=== PATIENT | male | born 1980 | race Caucasian/White ===

== ENCOUNTER → 2016-05-31 | Outpatient (REF) | payer OTHER | LOC: M LAB REF 16:39 | PROVIDERS: ATTEND Internal Medicine | DX: D37.01 Neoplasm of uncertain behavior of lip (principal) ==

== ENCOUNTER → 2016-10-23 | Outpatient (REF) | payer OTHER | LOC: M LAB REF 17:35 | PROVIDERS: ATTEND Nurse Practitioner Family | DX: M10.072 Idiopathic gout, left ankle and foot (principal) ==

== ENCOUNTER → 2017-12-04 | Outpatient (REF) | payer OTHER | LOC: M LAB REF 17:22 | DX: R19.7 Diarrhea, unspecified (principal) ==

== ENCOUNTER → 2018-06-30 | Outpatient (REF) | payer OTHER | LOC: M LAB REF 17:39 | PROVIDERS: ATTEND Internal Medicine | DX: M79.672 Pain in left foot (principal) ==

== ENCOUNTER 2018-09-02 01:51 | Emergency (ER) | payer OTHER ==
[~2018-09-02] VITALS: Ht 177.8 cm; Wt 109.1 kg
[2018-09-02] MEDS ORDERED: CITA20TA6 (01:58)
[2018-09-02 02:26] LABS: BASO # 0.1 10^3/uL (0.0-0.2); BASO % 0.8 % (0.0-1.0); EOS # 0.5 10^3/uL (0.0-0.50); EOS % 7.6 % (0.0-3.0); HEMATOCRIT 43.1 % (42.0-52.0); HEMOGLOBIN 14.7 g/dl (13.5-17.5); LYMPH # 1.2 10^3/uL (1.5-4.5); LYMPH % 19.9 % (24.0-44.0); MEAN CORPUSCULAR HEMOGLOBIN 29.1 pg (27.0-33.0); MEAN CORPUSCULAR HGB CONC 34.1 g/dl (32.0-36.5); MEAN CORPUSCULAR VOLUME 85.2 fl (80.0-96.0); MONO # 0.8 10^3/uL (0.0-0.8); MONO % 12.6 % (0.0-5.0); NEUTROPHILS # 3.5 10^3/uL (1.8-7.7); NEUTROPHILS % 58.8 % (36.0-66.0); PLATELET COUNT, AUTOMATED 169 10^3/uL (150-450); RED BLOOD COUNT 5.06 10^6/uL (4.30-6.10)
[2018-09-02 02:48] LABS: ALBUMIN 3.7 GM/DL (3.2-5.2); ALT/SGPT 32 U/L (12-78); BILIRUBIN,DIRECT 0.1 MG/DL (0.0-0.2); BILIRUBIN,TOTAL 0.5 MG/DL (0.2-1.0); BLOOD UREA NITROGEN 20 MG/DL (7-18); CALCIUM LEVEL 8.9 MG/DL (8.5-10.1); CARBON DIOXIDE LEVEL 27 MEQ/L (21-32); CHLORIDE LEVEL 109 MEQ/L (98-107); GLOMERULAR FILTRATION RATE > 60.0 (>60); GLUCOSE, FASTING 100 MG/DL (70-100); LIPASE 218 U/L (73-393); SODIUM LEVEL 143 MEQ/L (136-145); TOTAL PROTEIN 7.3 GM/DL (6.4-8.2)
[2018-09-02] MEDS ORDERED: NS 1,000 ML IV SCH (05:04)
[2018-09-02] MEDS ORDERED: ISOVUE-370 76% 100ML VIAL (Q9967) As Ordered ONE (05:25)
[2018-09-02 06:07] LABS: CK-MB VALUE MASS 2.9 NG/ML (<3.6); CPK CREATINE PHOSPHOKINASE 361 U/L (39-308); TROPONIN I < 0.02 NG/ML (< 0.10)
--- NOTE | 2018-09-02 06:47 | REPVR ---
EXAM: CT Angiography Chest With Contrast EXAM DATE/TIME: 09/02/2018 5:02 AM CLINICAL HISTORY: 37 years old, male; Left-sided chest pain; Patient HX: Left pain; Additional info: Pleuritic post left pain R/O pe TECHNIQUE: Imaging protocol: Axial computed tomographic angiography images of the chest with intravenous contrast using CT angiography protocol. Coronal and sagittal reformatted images were created and reviewed. 3D rendering: MIP reconstructed images were created and reviewed. Radiation optimization: All CT scans at this facility use at least one of these dose optimization techniques: automated exposure control; mA and/or kV adjustment per patient size (includes targeted exams where dose is matched to clinical indication); or iterative reconstruction. Contrast material: ISO; Contrast volume: 100 ml; Contrast route: AC; COMPARISON: No relevant prior studies available. FINDINGS: Pulmonary arteries: Normal. No pulmonary emboli. Aorta: Unremarkable. No aortic aneurysm. No aortic dissection. Lungs: There is bilateral posterior dependent lung atelectases. Discoid atelectasis seen in the right middle lobe. Pleural space: Unremarkable. No pneumothorax. No pleural effusion. Heart: Unremarkable. No cardiomegaly. No pericardial effusion. Mediastinum: There is a small sliding hiatal hernia. There is suggestion of esophageal wall thickening with some paraesophageal haziness Lymph nodes: Unremarkable. No enlarged lymph nodes. Bones/joints: Unremarkable. No acute fracture. Soft tissues: Unremarkable. IMPRESSION: 1. No CT evidence of pulmonary embolism or right heart strain. 2. No CT evidence of thoracic aortic aneurysm or dissection. 3. Small sliding hiatal hernia with suggestion of esophageal wall thickening with some periesophageal haziness. Correlate clinically for esophagitis among other etiologies. If indicated upper endoscopy may be obtained for further evaluation. 4. Bilateral basilar atelectatic changes in addition to right middle lobe discoid atelectasis. Electronically signed by: Taj June On 09/02/2018 06:46:40 AM
--- NOTE | 2018-09-02 06:50 | REPVR ---
EXAM: CT Abdomen and Pelvis With Contrast EXAM DATE/TIME: 09/02/2018 5:02 AM CLINICAL HISTORY: 37 years old, male; Abdominal pain; Localized; Left; Additional info: L flank pain TECHNIQUE: Imaging protocol: Axial computed tomography images of the abdomen and pelvis with intravenous contrast. Coronal and sagittal reformatted images were created and reviewed. Radiation optimization: All CT scans at this facility use at least one of these dose optimization techniques: automated exposure control; mA and/or kV adjustment per patient size (includes targeted exams where dose is matched to clinical indication); or iterative reconstruction. Contrast material: ISO; Contrast volume: 100 ml; Contrast route: AC; COMPARISON: No relevant prior studies available. FINDINGS: Mediastinum: There is a small sliding hiatal hernia. ABDOMEN: Liver: The liver is hypoattenuated. Gallbladder and bile ducts: The gallbladder is contracted limiting its evaluation. Pancreas: Normal. No ductal dilation. Spleen: Normal. No splenomegaly. Adrenals: Normal. No mass. Kidneys and ureters: Normal. No hydronephrosis. Stomach and bowel: Normal. No obstruction. No mucosal thickening. Appendix: No evidence of appendicitis. PELVIS: Bladder: Unremarkable as visualized. Reproductive: Unremarkable as visualized. ABDOMEN and PELVIS: Intraperitoneal space: Normal. No free air. No significant fluid collection. Bones/joints: No acute fracture. No dislocation. Soft tissues: Unremarkable. Vasculature: Normal. No abdominal aortic aneurysm. Lymph nodes: There is apparent proximal small bowel - jejunal wall thickening with shotty mesenteric lymph nodes. IMPRESSION: 1. Apparent proximal small bowel - jejunal wall thickening with shotty mesenteric lymph nodes. Correlate clinically for enteritis/jejunitis. 2. Fatty infiltration of the liver. 3. Small sliding hiatal hernia. Electronically signed by: Taj June On 09/02/2018 06:50:06 AM
[2018-09-02] MEDS ORDERED: KETOROLAC 30 MG/ML VIAL (J1885) IV ONE (07:00)
[2018-09-02] MEDS ORDERED: PANTOPRAZOLE 40MG TAB (PROTONIX) PO ONE (07:00)
[2018-09-02] MEDS ORDERED: PROT1TAB2 PO (07:01)
[2018-09-02 07:28] VITALS: BP 133/69
[2018-09-02 07:31] LABS: CK-MB VALUE MASS 2.1 NG/ML (<3.6); CPK CREATINE PHOSPHOKINASE 289 U/L (39-308); MB/CK RELATIVE INDEX 0.73 (< OR =4); TROPONIN I < 0.02 NG/ML (< 0.10)
--- NOTE | 2018-09-02 19:29 | ECGEPIP ---
[facility] - ED Test Date: 2018-09-02 Pat Name: DEON VANG Department: Room: - Gender: Male Manager Application: [facility] : 1980 Requested By: TENISHA Baez Order Number: [id number] Reading MD: Destiny Santamaria Measurements Intervals [place] Rate: 82 P: 31 UT: 110 QRS: 38 QRSD: 90 T: 44 QT: 348 QTc: 408 Interpretive Statements SINUS RHYTHM WITH SHORT UT INTERVAL NO PRIOR FOR COMPARISON Electronically Signed on 09-02-2018 19:28:40 EDT by Destiny Santamaria
== END 2018-09-02 07:32 | disposition home or self-care (01) ==
LOC: M ED 01:51
DX: R10.12 Left upper quadrant pain (principal); R11.0 Nausea; F41.9 Anxiety disorder, unspecified; Z87.891 Personal history of nicotine dependence
CPT/HCPCS: 71275; 74177; 80048; 80076; 81001; 82550; 82553; 83690; 84484; 85025; 93005; 93041; 96361; 96374; 99284; J1885; Q9967

== ENCOUNTER → 2018-09-04 | Outpatient (REF) | payer OTHER ==
[~2018-09-04] MED LIST: CITA20TA6; PROT1TAB2 PO
== END ==
LOC: M LAB REF 12:35
PROVIDERS: ATTEND Internal Medicine
DX: M10.9 Gout, unspecified (principal)

== ENCOUNTER → 2018-09-30 | Outpatient (REF) | payer OTHER ==
[2018-10-03 00:06] LABS: Lyme Disease IgG Ab 18 kDa Ban Present (.); Lyme Disease IgG Ab 23 kDa Ban Present (.); Lyme Disease IgG Ab 28 kDa Ban Absent (.); Lyme Disease IgG Ab 30 kDa Ban Absent (.); Lyme Disease IgG Ab 39 kDa Ban Present (.); Lyme Disease IgG Ab 41 kDa Ban Present (.); Lyme Disease IgG Ab 45 kDa Ban Absent (.); Lyme Disease IgG Ab 58 kDa Ban Absent (.); Lyme Disease IgG Ab 66 kDa Ban Absent (.); Lyme Disease IgG Ab 93 kDa Ban Absent (.); Lyme Disease IgG West Blot Int Negative (.); Lyme Disease IgG/IgM Antibodie 2.56 ISR (0.00-0.90); Lyme Disease IgM Ab 23 kDa Ban Present (.); Lyme Disease IgM Ab 39 kDa Ban Present (.); Lyme Disease IgM Ab 41 kDa Ban Present (.); Lyme Disease IgM Ab Quantitati 8.98 index (0.00-0.79); Lyme Disease IgM West Blot Int Positive (.)
== END ==
LOC: M LAB REF 17:00
PROVIDERS: ATTEND Physician Assistant
DX: L51.9 Erythema multiforme, unspecified (principal)

== ENCOUNTER → 2018-09-30 | Outpatient (REF) | payer OTHER ==
[2018-09-30 13:13] LABS: APPEARANCE, URINE CLEAR (CLEAR); BACTERIA, URINE AUTO NEGATIVE (NEGATIVE); BILIRUBIN, URINE AUTO NEGATIVE (NEGATIVE); BLOOD, URINE BLOOD NEGATIVE (NEGATIVE); CALCIUM OXALATE CRYSTALS SMALL; COLOR, URINE AMBER (YELLOW); GLUCOSE, URINE (UA) AUTO NEGATIVE (NEGATIVE); KETONE, URINE AUTO TRACE mg/dL (NEGATIVE); LEUKOCYTE ESTERASE, URINE AUTO NEGATIVE (NEGATIVE); MUCUS, URINE SMALL (NEGATIVE); NITRITE, URINE AUTO NEGATIVE (NEGATIVE); PROTEIN, URINE AUTO 1+ mg/dL (NEGATIVE); RBC, URINE AUTO 1 /HPF (0-3); SPECIFIC GRAVITY URINE AUTO 1.031 (1.002-1.035); SQUAMOUS EPITHELIAL CELL UR AU 0 /HPF (0-6); URIC ACID CRYSTALS SMALL; UROBILINOGEN, URINE AUTO 0.2 mg/dL (0.0-2.0); WBC, URINE AUTO 0 /HPF (0-3)
== END ==
LOC: M LAB REF 12:40
PROVIDERS: ATTEND Physician Assistant
DX: N39.0 Urinary tract infection, site not specified (principal)

== ENCOUNTER → 2018-11-27 | Outpatient (REF) | payer OTHER ==
[2018-11-27 17:38] LABS: C REACTIVE PROTEIN QUANTITATIV 0.83 MG/DL (0.00-0.30)
== END ==
LOC: M LAB REF 16:44
PROVIDERS: ATTEND Internal Medicine
DX: R10.12 Left upper quadrant pain (principal)

== ENCOUNTER → 2018-11-30 | Outpatient (REF) | payer OTHER | LOC: M LAB REF 12:34 | PROVIDERS: ATTEND Internal Medicine | DX: R10.12 Left upper quadrant pain (principal) ==

== ENCOUNTER → 2019-05-18 | Outpatient (REF) | payer OTHER ==
[~2019-05-18] MED LIST changes: -CITA20TA6; +CITA20TA6 PO; +OMEP-221 PO; +PROAAER10 INH; +ZITHTAB2 PO
== END ==
LOC: M LAB REF 12:35
PROVIDERS: ATTEND Registered Nurse
DX: F12.980 Cannabis use, unspecified with anxiety disorder (principal)

== ENCOUNTER 2019-05-21 18:22 | Emergency (ER) | payer BC ==
[~2019-05-21] VITALS: Ht 177.8 cm; Wt 109.1 kg
[~2019-05-21 18:22] MED LIST changes: -OMEP-221 PO; -PROAAER10 INH; -ZITHTAB2 PO
[2019-05-21] MEDS ORDERED: PROAAER10 INH (18:35)
[2019-05-21] MEDS ORDERED: ZITHTAB2 PO (18:35)
[2019-05-21] MEDS ORDERED: OMEP-221 PO (18:35)
--- NOTE | 2019-05-21 19:53 | REP ---
Chest x-ray: Two views. History: Chest pressure . Comparison study: No comparison . Findings: The lungs are well inflated and free of infiltrate. The pleural angles are sharp. The heart size is normal. Pulmonary vasculature is not increased. No significant bony abnormality is seen. Impression: Negative chest x-ray. Electronically Signed by Mir Valle MD 05/21/2019 07:45 P
[2019-05-21 20:10] VITALS: BP 135/84
[2019-05-21] MEDS ORDERED: ACETAMINOPHEN 325 MG TAB PO ONE (20:30)
--- NOTE | 2019-05-22 18:42 | ECGEPIP ---
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
== END 2019-05-21 20:40 | disposition home or self-care (01) ==
LOC: M ED 18:22
DX: H66.93 Otitis media, unspecified, bilateral (principal); H61.23 Impacted cerumen, bilateral; Z20.9 Contact with and (suspected) exposure to unspecified communicable disease; Z79.899 Other long term (current) drug therapy

== ENCOUNTER → 2019-05-21 | Outpatient (REF) | payer BC ==
[2019-05-21 19:24] LABS: INFLUENZA A AMPLIFICATION NEGATIVE (NEGATIVE); INFLUENZA B AMPLIFICATION NEGATIVE (NEGATIVE)
== END ==
LOC: M LAB REF 16:56
PROVIDERS: ATTEND Registered Nurse
DX: J06.9 Acute upper respiratory infection, unspecified (principal)

== ENCOUNTER → 2019-08-03 | Outpatient (CLI) | payer BC ==
[~2019-08-03] MED LIST changes: +OMEP-221 PO; +PROAAER10 INH; +ZITHTAB2 PO
== END ==
LOC: M LABSMTC 12:53
PROVIDERS: ATTEND Family Medicine
DX: Z03.818 Encounter for observation for suspected exposure to other biological agents ruled out (principal); Z11.59 Encounter for screening for other viral diseases

== ENCOUNTER → 2019-08-24 | Outpatient (CLI) | payer BC ==
[2019-08-24 16:18] LABS: C REACTIVE PROTEIN QUANTITATIV 0.78 MG/DL (0.00-0.30); CPK CREATINE PHOSPHOKINASE 169 U/L (39-308); RHEUMATOID FACTOR QUANT < 10.0 IU/ML (<15.0); URIC ACID 8.3 MG/DL (3.5-7.2)
[2019-08-24 16:37] LABS: TOTAL 25(OH) VITAMIN D 13.3 NG/ML (30.0-100.0)
[2019-08-27 19:08] LABS: ANTINUCLEAR ANTIBODIES DIRECT Negative (Negative); CYCLIC CITRULLINATED PEPTIDE 13 units (0-19); Lyme Disease IgG Ab 18 kDa Ban Present (.); Lyme Disease IgG Ab 23 kDa Ban Present (.); Lyme Disease IgG Ab 28 kDa Ban Absent (.); Lyme Disease IgG Ab 30 kDa Ban Absent (.); Lyme Disease IgG Ab 39 kDa Ban Absent (.); Lyme Disease IgG Ab 41 kDa Ban Present (.); Lyme Disease IgG Ab 45 kDa Ban Absent (.); Lyme Disease IgG Ab 58 kDa Ban Absent (.); Lyme Disease IgG Ab 66 kDa Ban Absent (.); Lyme Disease IgG Ab 93 kDa Ban Absent (.); Lyme Disease IgG West Blot Int Negative (.); Lyme Disease IgG/IgM Antibodie 1.48 ISR (0.00-0.90); Lyme Disease IgM Ab 23 kDa Ban Present (.); Lyme Disease IgM Ab 39 kDa Ban Present (.); Lyme Disease IgM Ab 41 kDa Ban Absent (.); Lyme Disease IgM Ab Quantitati 2.16 index (0.00-0.79); Lyme Disease IgM West Blot Int Positive (.)
== END ==
LOC: M PLALAB 14:28
PROVIDERS: ATTEND Physician Assistant
DX: M25.50 Pain in unspecified joint (principal)

== ENCOUNTER 2019-10-05 04:36 | Emergency (ER) | payer BC ==
[~2019-10-05] VITALS: Ht 177.8 cm; Wt 108.9 kg
[2019-10-05 05:09] LABS: BASO # 0.1 10^3/uL (0.0-0.2); BASO % 1.4 % (0.0-1.0); EOS # 0.8 10^3/uL (0.0-0.5); EOS % 11.4 % (0.0-3.0); HEMATOCRIT 44.8 % (42.0-52.0); HEMOGLOBIN 15.5 g/dl (13.5-17.5); LYMPH # 1.9 10^3/uL (1.5-5.0); LYMPH % 27.3 % (24.0-44.0); MEAN CORPUSCULAR HEMOGLOBIN 29.2 pg (27.0-33.0); MEAN CORPUSCULAR HGB CONC 34.6 g/dl (32.0-36.5); MEAN CORPUSCULAR VOLUME 84.5 fl (80.0-96.0); MONO # 0.6 10^3/uL (0.0-0.8); MONO % 8.5 % (0.0-5.0); NEUTROPHILS # 3.6 10^3/uL (1.5-8.5); NEUTROPHILS % 51.1 % (36.0-66.0); PLATELET COUNT, AUTOMATED 188 10^3/uL (150-450)
[2019-10-05 05:21] LABS: INR 1.03; PROTHROMBIN TIME 13.2 SECONDS (11.8-14.0)
[2019-10-05 05:41] LABS: ERYTHROCYTE SEDIMENTATION RATE 3 mm/hr (0-15)
[2019-10-05 05:47] LABS: ALT/SGPT 32 U/L (12-78); BILIRUBIN,DIRECT 0.1 MG/DL (0.0-0.2); BILIRUBIN,TOTAL 0.4 MG/DL (0.2-1.0); C REACTIVE PROTEIN QUANTITATIV < 0.30 MG/DL (0.00-0.30); LIPASE 131 U/L (73-393); NT-PRO BNP 42 PG/ML (<125); TOTAL PROTEIN 7.4 GM/DL (6.4-8.2)
[2019-10-05 06:09] LABS: D-DIMER QUANT < 270 ng/ml (<500)
[2019-10-05] MEDS ORDERED: KETOROLAC 30 MG/ML 1ML VIAL IV ONE (06:30)
[2019-10-05] MEDS ORDERED: KETO10TAB PO (07:43)
[2019-10-05 07:45] VITALS: BP 128/80
--- NOTE | 2019-10-05 07:50 | REP ---
Clinical: Acute chest pain . Comparison: 05/21/2019 . Findings: The mediastinum and cardiac silhouette are stable and within normal limits for portable technique. The lung rodgers are clear without acute consolidation, effusion, or pneumothorax. Skeletal structures are intact. Impression: No acute cardiopulmonary process appreciated. Electronically Signed by Ronaldo Lal MD 10/05/2019 07:42 A
--- NOTE | 2019-10-05 17:51 | ECGEPIP ---
[facility] - ED Test Date: 2019-10-05 Pat Name: DEON VANG Department: Room: - Gender: Male Credentialer: lr : 1980 Requested By: SUSHMA Madrid Order Number: [id number] Reading MD: Destiny Santamaria Measurements Intervals [place] Rate: 70 P: 37 TX: 131 QRS: 34 QRSD: 100 T: 32 QT: 377 QTc: 408 Interpretive Statements SINUS RHYTHM DECREASED RATE 05/21/19 Electronically Signed on 10-05-2019 17:50:39 EDT by Destiny Santamaria
== END 2019-10-05 08:05 | disposition home or self-care (01) ==
LOC: M ED 04:36
DX: R07.9 Chest pain, unspecified (principal); A69.20 Lyme disease, unspecified; F41.9 Anxiety disorder, unspecified; Z87.891 Personal history of nicotine dependence
CPT/HCPCS: 36415; 71045; 80047; 80076; 83690; 83880; 84484; 85025; 85379; 85610; 85652; 86140; 93005; 93041; 94760; 96374; 99285; J1885

== ENCOUNTER 2019-10-28 18:10 | Observation (INO) | payer BC ==
[~2019-10-28 18:10] MED LIST changes: +ISOVUE-370 76% 100ML VIAL As Ordered ONE; +KETO10TAB PO
[2019-10-28] MEDS ORDERED: LORazepam 2 MG/ML VIAL ONE (19:13)
[2019-10-28] MEDS ORDERED: LORazepam 2 MG/ML VIAL As Ordered ONE (19:13)
[2019-10-28] MEDS ORDERED: CIPROFLOXACIN/D5W 400 MG/200 ML BAG (J0744) ONE (19:14)
[2019-10-28] MEDS ORDERED: CIPROFLOXACIN/D5W 400 MG/200 ML BAG (J0744) As Ordered ONE (21:25)
[2019-10-29] MEDS ORDERED: KETOROLAC 30 MG/ML 1ML VIAL As Ordered ONE (00:34)
[2019-10-29] MEDS ORDERED: metroNIDAZOLE/NACL 500MG(5MG/ML) 100ML BAG (S0030) ONE ×2 (00:34→08:20)
[2019-10-29] MEDS ORDERED: KETOROLAC 30 MG/ML 1ML VIAL ONE (00:34)
[2019-10-29] MEDS ORDERED: metroNIDAZOLE/NACL 500MG(5MG/ML) 100ML BAG (S0030) As Ordered ONE ×2 (00:34→08:20)
[2019-10-29] MEDS ORDERED: MOM 30ML SUSPENSION UDC As Ordered ONE (10:15)
[2019-10-29] MEDS ORDERED: MOM 30ML SUSPENSION UDC ONE (10:15)
--- NOTE | 2019-11-26 13:31 | ECGEPIP ---
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
--- NOTE | 2019-11-26 14:52 | HPE ---
DATE OF ADMISSION: 10/28/2019 A 38-year-old male presents to the emergency department with right lower flank pain for the last 2 weeks. The pain is 7/10 in intensity, dull, aching, intermittent, radiating to the groin. Movement makes it worse. Standing up and lying down makes it better. He also has constipation for the last 3 days. He is bloated and passing a lot of gas. He has no history of nausea, vomiting, fever, weight loss. No history of urinary disturbances. No history of blood in stools, blood in urine. No history of trauma. PAST MEDICAL HISTORY: Significant for Lyme disease diagnosed twice in 2018 and in August 2019. Both the times he was treated with 3 weeks of doxycycline. He also has had kidney infection last year, treated with antibiotics. FAMILY HISTORY: Significant for diabetes on the paternal side, brain cancer in his aunt on the maternal side, and lung and throat cancer in an uncle on the maternal side. SOCIAL HISTORY: He had been a heavy drinker in his 20s, now an occasional drinker. He has been a smoker, smoking two packs a day but quit since the last 6 years. Recreational drugs: He uses occasional marijuana. 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 SEXUAL HISTORY: Sexually active with one female partner. Vital signs were normal. PHYSICAL EXAMINATION: GENERAL: The patient looks anxious, stressed, but no apparent discomfort as of now. He is alert and oriented to time, place, and person. He has a heavy build with good nutritional status. Hydration seems fine. HEENT: Shows no discharge. Normal extraocular movements. No scleral icterus. No pallor. Oral hydration status is good. Normal dental hygiene. No lesions in his mouth. NECK: Nondistended. No visible swellings, pulsations. No thyromegaly. No carotid bruit. LUNGS: Normal breath sounds bilaterally. No wheezing, crackles. CARDIOVASCULAR: Normal S1, S2. No murmur heard. ABDOMEN: Looks normal in color. Nondistended. No swelling. No rashes seen. No scars. Normal placement of that belly button. On palpation, feels soft to touch. Tender in the right lower flank, right lower abdominal quadrant. On auscultation, normal tympanitic sounds heard. Bowel sounds normal. Percussion: Tympanitic note. EXTREMITIES: Upper extremity pulses regular. Good volume pulse. No clubbing, no cyanosis. No asterixis. Lower extremities: No swelling, no ulcers, no edema, no rash. Peripheral pulses good. NEUROLOGIC: Normal strength in all four extremities. Sensations intact. LABORATORY DATA: CBC: His hemoglobin is normal. Electrolytes are normal. Liver function tests (LFTs) are normal. Glucose is normal. No urinary ketones. His CT with contrast shows pneumatosis in the wall of the right colon, particularly posteriorly with a few areas suggestive of minimal adjacent extraluminal air. Not definitive for ischemic bowel. Persistent minimal dilation of the appendix at 7 mm. No longer clearly containing air and not as well visualized. The distal portion of the appendix is again only faintly seen, and the appendix is incompletely evaluated. Probable small hiatal hernia with mild findings, raising the possibility of distal esophagitis. Minimal sludge in the gallbladder. PLAN: Admit him for observation in the medical/surgical [place]. Start intravenous (IV) fluids, normal saline 100 mL per hour. Start prophylactic antibiotics, ciprofloxacin 400 mg every 12 and metronidazole 500 mg every 8. Repeat labs picking machine operator. Activity as tolerated. Clear liquid diet. No per oral post midnight and reassess in the morning. Probable pneumatosis intestinalis, watching for ischemia bowel. MTDD
--- NOTE | 2019-11-26 15:26 | HPE ---
ADDENDUM -- Please see report #[id number]. DATE OF ADMISSION: 10/28/2019 The details of the history and physical examination will be dictated by my resident, Dr. Fowler. IN SUMMARY: This is a relatively healthy 38-year-old obese male with a two week history of right lower back pain for two weeks duration, slightly worse last night. Otherwise, denies any complaint of changes in bowel habits, fevers, chills or any severe abdominal pain. At that time was able to carry on with his regular activity, as well as able to eat. On evaluation, he has normal laboratory, but on CT was suspected to have possible pneumatosis in the posterior wall of the cecum, suspicious for possible ischemic bowel. PHYSICAL EXAMINATION: On examination, he does not have any peritonitis. Abdomen looks benign. He does have some mild lower back tenderness, which seems to be musculoskeletal. He is moving around quite comfortably. IMPRESSION: Right lower back pain, some mild abdominal pain with question of possible pneumatosis. I will hold him in the hospital and give him Cipro and Flagyl. I am not totally convinced of the possibility of ischemic bowel. His story just does not make sense for ischemic bowel. He does not have any risk factors for it. There is no association inflammation or anything that I could see. There is no contrast within the bowel, which may give me maybe more definition to the area. As I said, I will keep him in the hospital, do serial examination, I will talk with our radiologist during the day and possibly do other confirming studies, such as Barium enema or repeat CT with an oral contrast. I have discussed with him this plan and he is in agreement with it. ALICIA
[2019-12-01 11:44] LABS: APPEARANCE, URINE CLEAR (CLEAR); BACTERIA, URINE AUTO NEGATIVE (NEGATIVE); BILIRUBIN, URINE AUTO NEGATIVE (NEGATIVE); BLOOD, URINE BLOOD NEGATIVE (NEGATIVE); COLOR, URINE YELLOW (YELLOW); GLUCOSE, URINE (UA) AUTO NEGATIVE (NEGATIVE); KETONE, URINE AUTO NEGATIVE (NEGATIVE); LEUKOCYTE ESTERASE, URINE AUTO NEGATIVE (NEGATIVE); NITRITE, URINE AUTO NEGATIVE (NEGATIVE); PROTEIN, URINE AUTO NEGATIVE (NEGATIVE); RBC, URINE AUTO 1 /HPF (0-3); SPECIFIC GRAVITY URINE AUTO 1.005 (1.002-1.035); SQUAMOUS EPITHELIAL CELL UR AU 0 /HPF (0-6); UROBILINOGEN, URINE AUTO 0.2 mg/dL (0.0-2.0); WBC, URINE AUTO 0 /HPF (0-3)
[2019-12-02 08:55] LABS: BASO # 0.1 10^3/uL (0.0-0.2); BASO % 1.1 % (0.0-1.0); EOS # 0.4 10^3/uL (0.0-0.5); EOS % 4.8 % (0.0-3.0); HEMATOCRIT 44.9 % (42.0-52.0); HEMOGLOBIN 15.3 g/dl (13.5-17.5); LYMPH # 1.7 10^3/uL (1.5-5.0); LYMPH % 21.6 % (24.0-44.0); MEAN CORPUSCULAR HEMOGLOBIN 28.9 pg (27.0-33.0); MEAN CORPUSCULAR HGB CONC 34.1 g/dl (32.0-36.5); MEAN CORPUSCULAR VOLUME 84.9 fl (80.0-96.0); MONO # 0.5 10^3/uL (0.0-0.8); MONO % 6.5 % (0.0-5.0); NEUTROPHILS # 5.2 10^3/uL (1.5-8.5); NEUTROPHILS % 65.7 % (36.0-66.0); PLATELET COUNT, AUTOMATED 229 10^3/uL (150-450); RED BLOOD COUNT 5.29 10^6/uL (4.30-6.10)
[2019-12-13 11:01] LABS: BLOOD UREA NITROGEN 10 MG/DL (7-18); CARBON DIOXIDE LEVEL 27 MEQ/L (21-32); CHLORIDE LEVEL 107 MEQ/L (98-107); CREATININE FOR GFR 1.31 MG/DL (0.70-1.30); GLOMERULAR FILTRATION RATE > 60.0 (>60); GLUCOSE, FASTING 74 MG/DL (70-100); POTASSIUM SERUM 4.1 MEQ/L (3.5-5.1); SODIUM LEVEL 140 MEQ/L (136-145)
[2019-12-13 11:02] LABS: ALBUMIN 4.6 GM/DL (3.2-5.2); ALT/SGPT 34 U/L (12-78); BILIRUBIN,DIRECT 0.2 MG/DL (0.0-0.2); BILIRUBIN,TOTAL 0.7 MG/DL (0.2-1.0); CALCIUM LEVEL 9.5 MG/DL (8.5-10.1); LIPASE 123 U/L (73-393)
--- NOTE | 2019-12-25 07:10 | IPN ---
DATE: 10/29/2019 SUBJECTIVE: Patient is just about the same, hemodynamically stable, no new abdominal pain or discomfort, some mild right lower back discomfort. He was able to sleep. He denies any nausea. He has not had any bowel movement but is passing flatus. He is hemodynamically stable and afebrile. On examination, he looks very comfortable. Abdominal exam shows benign, nondistended, soft abdomen, nontender over the right lower quadrant area, no rebound or guarding. Minimal tenderness along the right paraspinal lower back area. Labs were reviewed and he does not have any leukocytosis nor any left shift. Electrolytes are normal. Lactic acid was not available at the time that I saw him. IMPRESSION AND PLAN: 1. Right lower back pain. Question of pneumatosis on CT. I reviewed the CT with our radiologist, Dr. Keene. He is not so convinced that there is pneumatosis, and if there is a minimal one, was not so sure if this is significant. He does not have any vascular narrowing on the CT that was done with IV contrast. There is no associated inflammation at the area, the appendix looks normal. There is no bowel obstruction that would have caused the ischemia at that side of the bowel wall, he does have a large amount of stool in the area. So, a few issues that I discussed with him is if there is any other confirmatory test we could do. He does not believe a repeat CT at this time would be of any benefit and the patient has a benign course. Either a followup CT a few weeks after or a colonoscopy may be a better followup. At this point, I do not think the patient truly has pneumatosis nor have anything in the gastrointestinal tract that may require antibiotics, surgery nor close followup. So, I am sending him home. I will give him a dose of Milk of Magnesia, and otherwise he was able to tolerate a regular diet, he can go home and followup with me in 2 weeks time. ALICIA
[2019-12-25 19:34] LABS: HEMATOCRIT 42.7 % (42.0-52.0); HEMOGLOBIN 14.6 g/dl (13.5-17.5); MEAN CORPUSCULAR HEMOGLOBIN 29.1 pg (27.0-33.0); MEAN CORPUSCULAR HGB CONC 34.2 g/dl (32.0-36.5); MEAN CORPUSCULAR VOLUME 85.1 fl (80.0-96.0); PLATELET COUNT, AUTOMATED 196 10^3/uL (150-450); RED BLOOD COUNT 5.02 10^6/uL (4.30-6.10); WHITE BLOOD COUNT 5.7 10^3/uL (4.0-10.0)
== END 2019-10-29 11:30 | disposition home or self-care (01) ==
LOC: M ED 18:10 → M MS5PR 18:11 → UNDOADMIN 20:30 → UNDODISIN 10-29 11:30
PROVIDERS: ADMIT Surgery; ATTEND Surgery
DX: M54.5 Low back pain (principal); K59.00 Constipation, unspecified; Z87.891 Personal history of nicotine dependence; E66.9 Obesity, unspecified
CPT/HCPCS: 74176; 74177; 80048; 80053; 80076; 81001; 83605; 83690; 85025; 85027; 87086; 93005; 96361; 96374; 99283; J0744; J1885; J2060; Q9967; U0002

== ENCOUNTER → 2019-11-11 | Outpatient (REF) | payer BC ==
[~2019-11-11] MED LIST changes: -ISOVUE-370 76% 100ML VIAL As Ordered ONE
== END ==
LOC: M LAB REF 17:39
PROVIDERS: ATTEND Family Medicine
DX: R19.7 Diarrhea, unspecified (principal)

== ENCOUNTER → 2019-11-26 | Outpatient (CLI) | payer BC ==
[~2019-11-26] MED LIST changes: +GASTROGRAFIN SOLUTION 30ML (Q9963) As Ordered ONE; +ISOVUE-370 76% 100ML VIAL As Ordered ONE
--- NOTE | 2019-12-16 13:50 | REP ---
CONTRAST ENHANCED CT ABDOMEN AND PELVIS CLINICAL: Abdominal pain. TECHNIQUE: Axial contrast enhanced images from the thoracic inlet to the upper abdomen with coronal and sagittal reformations using oral (per protocol) and 100 mL Isovue-370 intravenous contrast material. COMPARISON: 10/28/2019, 09/02/2018. FINDINGS: Lung bases are clear. Visualized heart and pericardium normal. Liver, spleen, pancreas, gallbladder, bilateral adrenal glands, and kidneys are normal. The enteric system is without obstruction or acute inflammatory process. Normal terminal ileum, cecum and appendix identified in the right lower quadrant. Few small sigmoid diverticula noted without acute diverticulitis. Pelvis demonstrates normal bladder and age appropriate prostate/seminal vesicles. No ascites. No free air. No adenopathy. Abdominal aorta and vasculature appear normal. Musculoskeletal structures are intact and without acute osseous abnormality. IMPRESSION: * No acute abdominopelvic pathology appreciated. * No ascites, focal inflammatory stranding, or adenopathy. * There is no evidence for pneumatosis on current examination and likely no evidence for pneumatosis on the prior examination. MTDD
== END ==
LOC: M RAD 12:11
PROVIDERS: ATTEND Surgery
DX: R10.84 Generalized abdominal pain (principal); M54.5 Low back pain
CPT/HCPCS: 74177; Q9963; Q9967

== ENCOUNTER → 2020-02-17 | Outpatient (CLI) | payer BC ==
[~2020-02-17] MED LIST changes: -GASTROGRAFIN SOLUTION 30ML (Q9963) As Ordered ONE; -ISOVUE-370 76% 100ML VIAL As Ordered ONE
[2020-02-17 15:06] LABS: BASO # 0.1 10^3/uL (0.0-0.2); BASO % 1.6 % (0.0-1.0); EOS # 0.4 10^3/uL (0.0-0.5); EOS % 8.1 % (0.0-3.0); HEMATOCRIT 47.7 % (42.0-52.0); HEMOGLOBIN 15.9 g/dl (13.5-17.5); LYMPH # 1.1 10^3/uL (1.5-5.0); LYMPH % 23.2 % (24.0-44.0); MEAN CORPUSCULAR HEMOGLOBIN 29.1 pg (27.0-33.0); MEAN CORPUSCULAR HGB CONC 33.3 g/dl (32.0-36.5); MEAN CORPUSCULAR VOLUME 87.2 fl (80.0-96.0); MONO # 0.5 10^3/uL (0.0-0.8); MONO % 10.6 % (0.0-5.0); NEUTROPHILS # 2.8 10^3/uL (1.5-8.5); NEUTROPHILS % 56.3 % (36.0-66.0); PLATELET COUNT, AUTOMATED 223 10^3/uL (150-450); RED BLOOD COUNT 5.47 10^6/uL (4.30-6.10); WHITE BLOOD COUNT 4.9 10^3/uL (4.0-10.0)
[2020-02-17 17:09] LABS: ALBUMIN 4.3 GM/DL (3.2-5.2); ALT/SGPT 33 U/L (12-78); BILIRUBIN,TOTAL 0.5 MG/DL (0.2-1.0); BLOOD UREA NITROGEN 16 MG/DL (7-18); CALCIUM LEVEL 9.1 MG/DL (8.5-10.1); CARBON DIOXIDE LEVEL 29 MEQ/L (21-32); CHLORIDE LEVEL 106 MEQ/L (98-107); CHOLESTEROL LEVEL 266 MG/DL (<200); CHOLESTEROL RISK RATIO 6.487 (<5); CREATININE FOR GFR 1.11 MG/DL (0.70-1.30); FREE T4 1.04 NG/DL (0.76-1.46); GLOMERULAR FILTRATION RATE > 60.0 (>60); GLUCOSE, FASTING 81 MG/DL (70-100); HDL CHOLESTEROL 41 MG/DL (>40); LDL CHOLESTEROL 182 MG/DL (<100); NON-HDL-C 225 MG/DL; POTASSIUM SERUM 4.2 MEQ/L (3.5-5.1); SODIUM LEVEL 138 MEQ/L (136-145); TOTAL PROTEIN 7.3 GM/DL (6.4-8.2); TRIGLYCERIDES LEVEL 216 MG/DL (<150); URIC ACID 6.3 MG/DL (3.5-7.2)
[2020-02-17 17:15] LABS: TOTAL 25(OH) VITAMIN D 66.3 NG/ML (30.0-100.0)
== END ==
LOC: M PLALAB 10:02
PROVIDERS: ATTEND Family Medicine
DX: E55.9 Vitamin D deficiency, unspecified (principal); Z13.220 Encounter for screening for lipoid disorders; Z13.29 Encounter for screening for other suspected endocrine disorder; Z13.0 Encounter for screening for diseases of the blood and blood-forming organs and certain disorders involving the immune mechanism; M10.9 Gout, unspecified

== ENCOUNTER → 2020-03-08 | Outpatient (REF) | payer BC ==
[2020-03-08 16:34] LABS: BASO # 0.1 10^3/uL (0.0-0.2); BASO % 1.3 % (0.0-1.0); EOS # 0.4 10^3/uL (0.0-0.5); EOS % 4.5 % (0.0-3.0); HEMATOCRIT 48.6 % (42.0-52.0); LYMPH # 1.7 10^3/uL (1.5-5.0); LYMPH % 21.6 % (24.0-44.0); MEAN CORPUSCULAR HEMOGLOBIN 27.9 pg (27.0-33.0); MEAN CORPUSCULAR HGB CONC 32.9 g/dl (32.0-36.5); MEAN CORPUSCULAR VOLUME 84.8 fl (80.0-96.0); MONO # 0.7 10^3/uL (0.0-0.8); MONO % 9.1 % (0.0-5.0); NEUTROPHILS # 4.9 10^3/uL (1.5-8.5); NEUTROPHILS % 63.2 % (36.0-66.0); PLATELET COUNT, AUTOMATED 289 10^3/uL (150-450); RED BLOOD COUNT 5.73 10^6/uL (4.30-6.10); WHITE BLOOD COUNT 7.7 10^3/uL (4.0-10.0)
[2020-03-08 17:18] LABS: C REACTIVE PROTEIN QUANTITATIV < 0.30 MG/DL (0.00-0.30); FERRITIN 90 NG/ML (26-388); IRON (FE) 74 UG/DL (65-175); RHEUMATOID FACTOR QUANT < 10.0 IU/ML (<15.0)
[2020-03-08 18:23] LABS: ERYTHROCYTE SEDIMENTATION RATE 3 mm/hr (0-15)
[2020-03-15 19:11] LABS: CYCLIC CITRULLINATED PEPTIDE 6 units (0-19); HLA-B27 Negative (.)
== END ==
LOC: M SFHCRHEU 15:18
PROVIDERS: ATTEND Internal Medicine
DX: M25.50 Pain in unspecified joint (principal)

== ENCOUNTER → 2020-03-14 | Outpatient (CLI) | payer BC ==
--- NOTE | 2020-03-14 15:10 | REP ---
INDICATION: SACROILIAC PAIN, POLYARTHRALGIA COMPARISON: None. TECHNIQUE: AP, lateral, bilateral oblique, and coned-down views of the lumbar spine. FINDINGS: Alignment and lordosis maintained. Vertebral bodies are intact. No acute fracture/compression injury or subluxation. No obvious spondylolysis or spondylolisthesis.. Endplate sclerosis and subtle marginal spurring at the L1-2 and T12-L1 levels suggests mild degenerative change. IMPRESSION: Mild degenerative changes at T12-L1 and L1-2. <Electronically signed by Ronaldo Lal > 03/14/20 [id number]
--- NOTE | 2020-03-14 15:11 | REP ---
INDICATION: SACROILIAC PAIN, POLYARTHRALGIA. COMPARISON: None. TECHNIQUE: AP, lateral, open mouth views of the cervical spine. FINDINGS: Alignment and lordosis maintained. Vertebral bodies and disc spaces are normal. Prevertebral soft tissues are normal. C1-C2 articulation and odontoid process appear normal. IMPRESSION: Normal age-appropriate cervical spine radiographs <Electronically signed by Ronaldo Lal > 03/14/20 [id number]
--- NOTE | 2020-03-14 15:16 | REP ---
INDICATION: SACROILIAC PAIN, POLYARTHRALGIA. COMPARISON: None. TECHNIQUE: AP and bilateral oblique views of the bilateral sacroiliac joints FINDINGS: Bilateral sacroiliac joints are symmetric and age-appropriate. No significant degenerative changes are appreciated. IMPRESSION: Normal symmetric age-appropriate bilateral sacroiliac joints <Electronically signed by Ronaldo Lal > 03/14/20 [id number]
== END ==
LOC: M WUC 13:56
PROVIDERS: ATTEND Internal Medicine
DX: M53.3 Sacrococcygeal disorders, not elsewhere classified (principal); M25.50 Pain in unspecified joint

== ENCOUNTER → 2020-03-15 | Outpatient (REF) | payer BC | LOC: M LAB REF 17:59 | PROVIDERS: ATTEND Family Medicine | DX: J06.9 Acute upper respiratory infection, unspecified (principal) ==

== ENCOUNTER → 2020-04-12 | Outpatient (REF) | payer BC | LOC: M LAB REF 18:49 | PROVIDERS: ATTEND Physician Assistant | DX: R19.7 Diarrhea, unspecified (principal) ==

== ENCOUNTER → 2020-05-16 | Outpatient (CLI) | payer SELFPAY | LOC: M LABSMTC 09:53 | PROVIDERS: ATTEND Pediatrics | DX: Z11.52 Encounter for screening for COVID-19 (principal) ==

== ENCOUNTER → 2020-08-18 | Outpatient (CLI) | payer BC ==
[2020-08-18 15:44] LABS: BASO # 0.1 10^3/uL (0.0-0.2); BASO % 1.5 % (0.0-1.0); EOS # 0.3 10^3/uL (0.0-0.5); EOS % 4.9 % (0.0-3.0); HEMATOCRIT 48.1 % (42.0-52.0); HEMOGLOBIN 16.3 g/dl (13.5-17.5); LYMPH # 1.1 10^3/uL (1.5-5.0); LYMPH % 19.6 % (24.0-44.0); MEAN CORPUSCULAR HEMOGLOBIN 29.1 pg (27.0-33.0); MEAN CORPUSCULAR HGB CONC 33.9 g/dl (32.0-36.5); MEAN CORPUSCULAR VOLUME 85.9 fl (80.0-96.0); MONO # 0.5 10^3/uL (0.0-0.8); MONO % 8.2 % (2.0-8.0); NEUTROPHILS # 3.6 10^3/uL (1.5-8.5); NEUTROPHILS % 65.6 % (36.0-66.0); PLATELET COUNT, AUTOMATED 175 10^3/uL (150-450); WHITE BLOOD COUNT 5.5 10^3/uL (4.0-10.0)
[2020-08-18 16:09] LABS: ALBUMIN 4.5 GM/DL (3.2-5.2); ALT/SGPT 27 U/L (12-78); BILIRUBIN,TOTAL 0.7 MG/DL (0.2-1.0); BLOOD UREA NITROGEN 8 MG/DL (7-18); CALCIUM LEVEL 9.5 MG/DL (8.5-10.1); CARBON DIOXIDE LEVEL 27 MEQ/L (21-32); CHLORIDE LEVEL 107 MEQ/L (98-107); CK-MB VALUE MASS < 1.0 NG/ML (<3.6); CPK CREATINE PHOSPHOKINASE 176 U/L (39-308); CREATININE FOR GFR 1.14 MG/DL (0.70-1.30); FREE T4 1.19 NG/DL (0.76-1.46); GLOMERULAR FILTRATION RATE > 60.0 (>60); GLUCOSE, FASTING 79 MG/DL (70-100); MAGNESIUM LEVEL 2.2 MG/DL (1.8-2.4); MB/CK RELATIVE INDEX 0.57 (< OR =4); PHOSPHORUS LEVEL 3.3 MG/DL (2.5-4.9); SODIUM LEVEL 141 MEQ/L (136-145); TOTAL PROTEIN 7.6 GM/DL (6.4-8.2); TROPONIN I < 0.02 NG/ML (< 0.10)
== END ==
LOC: M WUC 12:26
PROVIDERS: ATTEND Nurse Practitioner Family
DX: R53.83 Other fatigue (principal)

== ENCOUNTER → 2020-09-27 | Outpatient (CLI) | payer SELFPAY | LOC: M LABSMTC 10:34 | PROVIDERS: ATTEND Pediatrics | DX: Z20.828 Contact with and (suspected) exposure to other viral communicable diseases (principal) ==

== ENCOUNTER → 2020-11-01 | Outpatient (CLI) | payer BC ==
[2020-11-03 12:12] LABS: Lyme Disease IgG Ab 18 kDa Ban Present (.); Lyme Disease IgG Ab 23 kDa Ban Present (.); Lyme Disease IgG Ab 28 kDa Ban Absent (.); Lyme Disease IgG Ab 30 kDa Ban Absent (.); Lyme Disease IgG Ab 39 kDa Ban Absent (.); Lyme Disease IgG Ab 41 kDa Ban Present (.); Lyme Disease IgG Ab 45 kDa Ban Absent (.); Lyme Disease IgG Ab 58 kDa Ban Absent (.); Lyme Disease IgG Ab 66 kDa Ban Absent (.); Lyme Disease IgG Ab 93 kDa Ban Absent (.); Lyme Disease IgG West Blot Int Negative (.); Lyme Disease IgG/IgM Antibodie 0.94 ISR (0.00-0.90); Lyme Disease IgM Ab 23 kDa Ban Present (.); Lyme Disease IgM Ab 39 kDa Ban Present (.); Lyme Disease IgM Ab 41 kDa Ban Absent (.); Lyme Disease IgM Ab Quantitati 1.92 index (0.00-0.79); Lyme Disease IgM West Blot Int Positive (.)
== END ==
LOC: M PLALAB 10:17
PROVIDERS: ATTEND Family Medicine
DX: S40.862A Insect bite (nonvenomous) of left upper arm, initial encounter (principal); W57.XXXA Bitten or stung by nonvenomous insect and other nonvenomous arthropods, initial encounter; Y92.9 Unspecified place or not applicable

== ENCOUNTER → 2020-11-13 | Outpatient (CLI) | payer SELFPAY ==
[~2020-11-13] MED LIST changes: +ALLO300T2 PO; +BUPR150T12 PO; +DOXY100T27 PO; +ERGO500029 PO; +IBUP-1114 PO
== END ==
LOC: M LABSMTC 10:16
PROVIDERS: ATTEND Anesthesiology
DX: Z01.812 Encounter for preprocedural laboratory examination (principal); Z20.822 Contact with and (suspected) exposure to COVID-19

== ENCOUNTER 2020-11-17 11:15 | Day surgery (SDC) | payer BC ==
[~2020-11-17] VITALS: Ht 177.8 cm; Wt 95.2 kg
[~2020-11-17 11:15] MED LIST changes: +LIDOCAINE 2% 100MG/5ML SDV (FOR ANES.) As Ordered ONE; +NS 1,000 ML IV ONE; +propofoL 200 MG/20 ML VIAL As Ordered ONE
--- NOTE | 2020-11-17 13:45 | ROOR ---
Patient Name: Indra Guzman Procedure Date: 11/17/2020 12:48 PM Date of : 1980 Age: 40 Room: [facility] Gender: Male Note Status: Finalized Procedure: Upper GI endoscopy Indications: Epigastric abdominal pain, Heartburn, Diarrhea Providers: Jerald Rodgers MD Referring MD: Mita RICHTER DO Requesting Provider: Medicines: Monitored Anesthesia Care Complications: No immediate complications. Procedure: Pre-Anesthesia Assessment: - The heart rate, respiratory rate, oxygen saturations, blood pressure, adequacy of pulmonary ventilation, and response to care were monitored throughout the procedure. The Endoscope was introduced through the mouth, and advanced to the second part of duodenum. The upper GI endoscopy was accomplished without difficulty. The patient tolerated the procedure well. Findings: Two benign-appearing, intrinsic severe (stenosis; an endoscope cannot pass) stenoses were found in the proximal esophagus. The narrowest stenosis measured less than one cm (in length). The stenoses were traversed after dilation. A TTS dilator was passed through the scope. Dilation with a 12-13.5-15 mm balloon dilator was performed to 12 mm. The dilation site was examined and showed complete resolution of luminal narrowing. There were esophageal mucosal changes consistent with long-segment Dejesus's esophagus present in the lower third of the esophagus. The maximum longitudinal extent of these mucosal changes was 9 cm in length. No nodularities were seen. There is mild esophagitis changes at the Z line at 30 cm from incisors/top of barretts. Mucosa was biopsied with a cold forceps for histology randomly at intervals of 2 cm from 30 to 39 cm from the incisors. A total of 5 specimen bottles were sent to pathology. A medium-sized hiatal hernia was present. The entire examined stomach was normal. Biopsies were taken with a cold forceps for histology. The examined duodenum was normal. Biopsies for histology were taken with a cold forceps for evaluation of celiac disease. Several biopsies were obtained with cold forceps for evaluation of eosinophilic esophagitis in the upper third of the esophagus and in the middle third of the esophagus. Impression: - Small caliber, ringed appearance in proximal esophagus.Biopsies were obtained in the upper third of the esophagus and in the middle third of the esophagus. r/o Eosinophilic esophagitis. - Benign-appearing proximal esophageal stenoses. Dilated to 12 mm with TTS balloon system. 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 Biopsied. - Medium-sized hiatal hernia. - Otherwise normal stomach. Biopsied. - Normal examined duodenum. Biopsied. Recommendation: - Use Prilosec (omeprazole) 40 mg PO BID indefinitely. - Telephone endoscopist for pathology results in 2 weeks. - (the script was sent to your pharmacy on file) - Repeat upper endoscopy usually in 3 years for surveillance of benign Dejesus's esophagus. (However await biopsies for definite interval timing of EGD)--call my office in 2 weeks. Procedure Code(s): --- Professional --- 49345, Esophagogastroduodenoscopy, flexible, transoral; with transendoscopic balloon dilation of esophagus (less than 30 mm diameter) 39800, 59, Esophagogastroduodenoscopy, flexible, transoral; with biopsy, single or multiple Diagnosis Code(s): --- Professional --- R19.7, Diarrhea, unspecified R12, Heartburn K44.9, Diaphragmatic hernia without obstruction or gangrene R10.13, Epigastric pain K22.8, Other specified diseases of esophagus K22.2, Esophageal obstruction CPT copyright 2019 [employer]. All rights reserved. The codes documented in this report are preliminary and upon conduit worker review may be revised to meet current compliance requirements. Jerald Rodgers MD Jerald Rodgers MD 11/17/2020 1:44:42 PM Electronically signed by Jerald Rodgers MD Number of Addenda: 0 Note Initiated On: 11/17/2020 12:48 PM Estimated Blood Loss: Estimated blood loss: none.
--- NOTE | 2020-11-17 13:48 | ROOR ---
Patient Name: Indra Guzman Procedure Date: 11/17/2020 12:49 PM Date of : 1980 Age: 40 Room: [facility] Gender: Male Note Status: Finalized Procedure: Colonoscopy Indications: Generalized abdominal pain, Chronic diarrhea, Suspected irritable bowel syndrome Providers: Jerald Rodgers MD Referring MD: Mita RICHTER DO Requesting Provider: Medicines: Monitored Anesthesia Care Complications: No immediate complications. Procedure: Pre-Anesthesia Assessment: - The heart rate, respiratory rate, oxygen saturations, blood pressure, adequacy of pulmonary ventilation, and response to care were monitored throughout the procedure. The Colonoscope was introduced through the anus and advanced to 10 cm into the ileum. The colonoscopy was performed without difficulty. The patient tolerated the procedure well. The quality of the bowel preparation was unsatisfactory. Findings: The perianal and digital rectal examinations were normal. The colon (entire examined portion) appeared normal. The terminal ileum appeared normal. Biopsies for histology were taken with a cold forceps for evaluation of microscopic colitis. Impression: - Preparation of the colon was suboptimal. - The entire examined colon is normal. - The examined portion of the ileum was normal. - Biopsies were taken with a cold forceps for evaluation of microscopic colitis. Recommendation: - Repeat colonoscopy in 1- 2 years because the bowel preparation was suboptimal. - Telephone endoscopist for pathology results in 2 weeks. - Use fiber, for example Citrucel, Fibercon, Konsyl or Metamucil. - Use Bentyl (dicyclomine) 10 mg PO QID 30 min AC. Procedure Code(s): --- Professional --- 36204, Colonoscopy, flexible; with biopsy, single or multiple Diagnosis Code(s): --- Professional --- K52.9, Noninfective gastroenteritis and colitis, unspecified R10.84, Generalized abdominal pain CPT copyright 2019 [employer]. All rights reserved. The codes documented in this report are preliminary and upon therapeutic activities services worker review may be revised to meet current compliance requirements. Jerald Rodgers MD Jerald Rodgers MD 11/17/2020 1:47:37 PM Electronically signed by Jerald Rodgers MD Number of Addenda: 0 Note Initiated On: 11/17/2020 12:49 PM Estimated Blood Loss: Estimated blood loss: none.
[2020-11-17 14:39] VITALS: BP 133/83
== END 2020-11-17 14:53 | disposition home or self-care (01) ==
LOC: M OPP 11:15
PROVIDERS: ATTEND Internal Medicine Gastroenterology
DX: K52.9 Noninfective gastroenteritis and colitis, unspecified (principal); R10.84 Generalized abdominal pain; K44.9 Diaphragmatic hernia without obstruction or gangrene; K22.8 Other specified diseases of esophagus; K22.2 Esophageal obstruction; R10.13 Epigastric pain; Z79.899 Other long term (current) drug therapy